=== PATIENT | female | born 1985 | race Caucasian/White ===

== ENCOUNTER 2018-02-02 20:22 | Emergency (ER) | payer BC, OTHER ==
[~2018-02-02] VITALS: Wt 61.2 kg
[~2018-02-02 20:22] MED LIST: CHANTIX1 M1 PO; KEFLEX500 M1 PO; KEFLEX500 MG PO; NKHM; PREDNISONE20 M1 PO; PREDNISONE20 MG PO; PRENATAL1 TA1 PO; VISTARIL25 MG PO; [UNRECOGNIZED DRUG - OTHER] PO
[2018-02-02 21:59] LABS: HEMATOCRIT 41.7 % (37.0-47.0); HEMOGLOBIN 14.2 g/dl (12.0-16.0); MEAN CELL VOLUME 94.6 fl (81.0-99.0); MEAN CORPUSCULAR HGB 32.2 pg (27.0-31.0); MEAN CORPUSCULAR HGB CONC 34.1 g/dl (33.0-37.0); PLATELET COUNT AUTOMATED 250 10*3/uL (130-400); RED BLOOD COUNT 4.41 10*6/uL (4.10-5.10); WHITE BLOOD COUNT 15.9 10*3/uL (4.8-10.8)
[2018-02-02 22:15] LABS: ALBUMIN 3.8 gm/dl (3.1-4.5); ALKALINE PHOSPHATASE 96 U/L (45-117); BUN 10 mg/dl (7-24); CHLORIDE 107 mmol/L (98-107); CREATININE 0.68 mg/dL (0.55-1.02); SGOT/AST 9 IU/L (3-35); SGPT/ALT 12 U/L (12-78); SODIUM 141 mmol/L (136-145); TOTAL PROTEIN 7.3 gm/dL (6.4-8.2)
[2018-02-02 22:17] LABS: BASOPHILS 1 % (0-1); PLATELET SUFFICIENCY NORMAL (NORMAL); TOTAL CELLS COUNTED 100 #CELLS
[2018-02-02 22:18] LABS: TROPONIN I < 0.015 ng/ml (<0.045)
[2018-02-03 00:29] LABS: BILIRUBIN NEGATIVE (NEGATIVE); BLOOD 1+ (NEGATIVE); CLARITY SL CLOUDY (CLEAR); COLOR YELLOW (YELLOW); GLUCOSE NEGATIVE (NEGATIVE); KETONE NEGATIVE (NEGATIVE); LEUKO ESTERASE 3+ (NEGATIVE); NITRITE NEGATIVE (NEGATIVE); SPECIFIC GRAVITY <= 1.005 (1.005-1.030); UROBILINOGEN 0.2 E.U./dl (0.2-1.0)
[2018-02-03 00:42] LABS: EPITHELIAL CELLS 25-30; WBC 21-30 wbc/hpf (0-5)
[2018-02-03 00:43] LABS: BACTERIA TRACE
[2018-02-03] MEDS ORDERED: SEPTDS PO (00:59)
[2018-02-03] MEDS ORDERED: MEDROL DOSEPAK4 MG PO (00:59)
== END 2018-02-03 00:58 | disposition home or self-care (01) ==
LOC: ED 20:22
PROVIDERS: Nurse Practitioner Family
DX: J40 Bronchitis, not specified as acute or chronic (principal); N39.0 Urinary tract infection, site not specified; R20.0 Anesthesia of skin; M25.552 Pain in left hip; M25.551 Pain in right hip; F17.200 Nicotine dependence, unspecified, uncomplicated; Z79.899 Other long term (current) drug therapy; Z98.51 Tubal ligation status

== ENCOUNTER 2018-05-30 18:52 | Emergency (ER) | payer BC, OTHER ==
[~2018-05-30] VITALS: Ht 167.6 cm; Wt 60.8 kg
[~2018-05-30 18:52] MED LIST changes: +MEDROL DOSEPAK4 MG PO; +SEPTDS PO
[2018-05-30 19:23] LABS: BILIRUBIN NEGATIVE (NEGATIVE); BLOOD 1+ (NEGATIVE); CLARITY CLEAR (CLEAR); COLOR YELLOW (YELLOW); GLUCOSE NEGATIVE (NEGATIVE); KETONE NEGATIVE (NEGATIVE); LEUKO ESTERASE 3+ (NEGATIVE); NITRITE POSITIVE (NEGATIVE); PH 5.5 (5.0-9.0); SPECIFIC GRAVITY <= 1.005 (1.005-1.030); UROBILINOGEN 0.2 E.U./dl (0.2-1.0)
[2018-05-30 19:26] LABS: BASO # 0.1 10*3/uL (0.0-0.1); BASO % 0.5 % (0.0-1.0); EOS # 0.3 10*3/uL (0.0-0.4); EOS % 2.2 % (1.0-4.0); HEMATOCRIT 43.3 % (37.0-47.0); LYMPH % 14.3 % (27.0-41.0); MEAN CELL VOLUME 93.1 fl (81.0-99.0); MEAN CORPUSCULAR HGB 32.3 pg (27.0-31.0); MEAN CORPUSCULAR HGB CONC 34.6 g/dl (33.0-37.0); MEAN PLATELET VOLUME 10.2 fl (9.6-12.3); MONO # 1.3 10*3/uL (0.1-1.0); MONO % 9.3 % (3.0-9.0); NEUT # 10.5 10*3/uL (2.3-7.9); NEUT % 73.5 % (47.0-73.0); PLATELET COUNT AUTOMATED 314 10*3/uL (130-400); RED BLOOD COUNT 4.65 10*6/uL (4.10-5.10); RED CELL DISTRI WIDTH 12.7 % (0-14.5); WHITE BLOOD COUNT 14.2 10*3/uL (4.8-10.8)
[2018-05-30 19:37] LABS: BACTERIA TRACE; WBC TNTC wbc/hpf (0-5)
[2018-05-30 19:41] LABS: ALBUMIN 4.2 gm/dl (3.1-4.5); CREATININE 1.27 mg/dL (0.55-1.02); POTASSIUM 3.5 mmol/L (3.5-5.1); TOTAL PROTEIN 7.8 gm/dL (6.4-8.2)
== END 2018-05-31 00:10 | disposition home or self-care (01) ==
LOC: ED 18:52
PROVIDERS: Registered Nurse
DX: R51 Headache (principal); N39.0 Urinary tract infection, site not specified; E86.0 Dehydration

== ENCOUNTER → 2018-12-17 | Outpatient (CLI) | payer OTHER ==
[~2018-12-17] MED LIST changes: +HYDROCODONE-AC1 EAC1 PO; +Motrin,Rufen800 MG PO; +URIBEL CAPSULE1 EACH PO
== END | disposition home or self-care (01) ==
LOC: NM 06:54 → EDSTATUS 07:00 → NM 07:00
DX: R79.89 Other specified abnormal findings of blood chemistry (principal)

== ENCOUNTER → 2019-01-13 | Outpatient (CLI) | payer OTHER ==
[~2019-01-13] VITALS: Ht 165.1 cm; Wt 57.6 kg
== END ==
LOC: SDC 01-08 13:15 → LAB 07:45 → SDC 01-15 00:14 → EDSTATUS 01-15 13:15 → SDC 01-15 13:15
DX: N94.6 Dysmenorrhea, unspecified (principal); N93.9 Abnormal uterine and vaginal bleeding, unspecified; F17.210 Nicotine dependence, cigarettes, uncomplicated; Z98.890 Other specified postprocedural states; Z98.51 Tubal ligation status; Z90.49 Acquired absence of other specified parts of digestive tract

== ENCOUNTER → 2019-07-11 | Outpatient (CLI) | payer OTHER | END | disposition home or self-care (01) | LOC: RAD 09:25 | DX: M54.31 Sciatica, right side (principal); M54.32 Sciatica, left side; M25.551 Pain in right hip; M25.552 Pain in left hip ==

== ENCOUNTER 2020-04-21 09:47 | Emergency (ER) | payer OTHER ==
[~2020-04-21] VITALS: Ht 165.1 cm; Wt 59.0 kg
== END 2020-04-21 11:56 | disposition home or self-care (01) ==
LOC: ED 09:47
DX: S93.401A Sprain of unspecified ligament of right ankle, initial encounter (principal); F17.200 Nicotine dependence, unspecified, uncomplicated; Z79.899 Other long term (current) drug therapy; X58.XXXA Exposure to other specified factors, initial encounter; Y93.89 Activity, other specified; Y92.89 Other specified places as the place of occurrence of the external cause; Y99.8 Other external cause status

== ENCOUNTER → 2021-04-19 | Outpatient (CLI) | payer OTHER | END | disposition home or self-care (01) | LOC: COVID19 16:12 | PROVIDERS: ATTEND Internal Medicine | DX: U07.1 COVID-19 (principal) ==